=== PATIENT | female | born 1990 | race Two or more races ===

== ENCOUNTER 2024-06-09 05:06 | Emergency (ER) | payer SELFPAY ==
--- NOTE | 2024-06-09 | ECG_ITS ---
Test Reason : FALL Blood Pressure : / mmHG Vent. Rate : 093 BPM Atrial Rate : 093 BPM P-R Int : 120 ms QRS Dur : 084 ms QT Int : 388 ms P-R-T Axes : 041 030 041 degrees QTc Int : 482 ms Normal sinus rhythm Cannot rule out Anterior infarct , age undetermined Abnormal ECG No previous ECGs available Referred By: Generic ED Physician Electronically Signed By:HARVINDER GUTIERREZ MD
--- NOTE | ~2024-06-09 | CT_ITS ---
EXAMINATION: CT ABDOMEN AND PELVIS WITH CONTRAST CLINICAL INFORMATION: Flank pain, bilaterally. COMPARISON: No priors. TECHNIQUE: Multidetector volumetric images were obtained from the superior aspect of the liver through the pubic symphysis following administration 85 mL of Omnipaque 350 intravenous contrast without reported immediate complications. Sagittal and coronal reformatted images were obtained on the technologist's workstation. Oral contrast: No This CT examination was performed using dose optimization techniques as appropriate, variously including the following: *Automated exposure control *Adjustment of mA and/or kV according to patient size (this includes techniques or standardized protocols for targeted exams where dose is matched to indication/reason for exam; i.e. extremities or head) *Use of iterative reconstruction technique DLP: 621 mGy-cm FINDINGS: LUNG BASES: No acute airspace disease or gross pulmonary nodules in the included lung bases. LIVER, GALLBLADDER, AND BILIARY TREE: Liver measures 15 cm. Decreased enhancement pattern. There is a 3.4 cm heterogeneous low density in the right hepatic lobe near the 4A /4B segments.. Main portal veins, hepatic veins and intrahepatic portion of the IVC are patent. No intrahepatic biliary ductal dilatation. No pericholecystic fluid collection or gallbladder wall thickening. Common bile duct measures 3 mm. PANCREAS: No focal mass. No main pancreatic ductal dilatation. No peripancreatic fluid collections. SPLEEN: Measures 17 cm. No focal mass. ADRENAL GLANDS: No nodular lesions. KIDNEYS AND URETERS: Normal enhancement pattern of the renal cortex and medulla. No gross mass. No hydronephrosis. BLADDER: Fluid-filled. GASTROINTESTINAL TRACT: Collapsed appearance of the left hemicolon. No intestinal obstruction pattern. No pneumatosis intestinalis. Appendix is normal Hiatal hernia, small size. No ascites. No pneumoperitoneum. ABDOMINAL WALL: No gross hernia. LYMPH NODES: No lymphadenopathy. VASCULAR: No aneurysm or dissection, abdominal aorta. PELVIC VISCERA: Heterogeneous enhancing nodular lesions in the uterus, the largest measures 3.4 cm. There is a 3 cm fluid density in the left adnexa. OSSEOUS STRUCTURES: No acute fracture or listhesis in the axial skeleton. No lytic or blastic lesions. Prominent epidural fat at L5-S1 resulting in decreased diameter of the thecal sac. Fatty atrophy in the lower lumbar muscles likely related to denervation. CT/CT abdomen pelvis w IV con IMPRESSION: No hydronephrosis or gross renal lesion. Hepatic steatosis. 3.4 cm heterogeneous low density lesion, right hepatic lobe. Hiatal hernia, small size. Uterine fibroids. 3 cm cystic lesion, left adnexa. Fleischner guidelines were followed. Electronically signed by: Noam Hendrix MD 06/09/2024 09:05 AM JANE
--- NOTE | ~2024-06-09 | CT_ITS ---
EXAMINATION: CT HEAD WITHOUT CONTRAST CLINICAL INFORMATION: fall, head injury, pain COMPARISON: None available. TECHNIQUE: Contiguous axial imaging was performed from the skull base to vertex without intravenous administration of contrast. This CT examination was performed using dose optimization techniques as appropriate, variously including the following: *Automated exposure control *Adjustment of mA and/or kV according to patient size (this includes techniques or standardized protocols for targeted exams where dose is matched to indication/reason for exam; i.e. extremities or head) *Use of iterative reconstruction technique DLP: 667 mGy-cm FINDINGS: No acute intracranial hemorrhage, mass effect, midline shift, hydrocephalus or herniation. Seals-white matter differentiation is normal. Posterior cranial fossa contents demonstrated slight increased density along the right transverse venous sinus and into the superior sagittal venous sinus. There is an 8 mm fluid density in the pineal gland. Bony calvarium is intact. Skull base is intact. No air-fluid levels in the included paranasal sinuses. Tympanic cavities and mastoid air cells are aerated. There is a 12 mm round fluid density beneath the skin in the right maxillofacial region. CT/CT head/brain wo IV con IMPRESSION: No acute fracture, bony calvarium. No acute intracranial hemorrhage. 8 mm pineal gland cyst. ] Electronically signed by: Noam Hendrix MD 06/09/2024 09:11 AM JANE
--- NOTE | ~2024-06-09 | CT_ITS ---
EXAMINATION: CT CERVICAL SPINE WITHOUT CONTRAST CLINICAL INFORMATION: Status post fall. Pain. COMPARISON: None available. TECHNIQUE: Contiguous axial images through the cervical spine using 3 mm collimation with bone and soft tissue algorithm. Sagittal and coronal reformatted images acquired. This CT examination was performed using dose optimization techniques as appropriate, variously including the following: *Automated exposure control *Adjustment of mA and/or kV according to patient size (this includes techniques or standardized protocols for targeted exams where dose is matched to indication/reason for exam; i.e. extremities or head) *Use of iterative reconstruction technique DLP: 429 mGy-cm FINDINGS: Craniocervical junction is intact. C1 is intact. C2 is intact. No acute cortical disruption within the vertebral bodies, transverse processes, facet joints, lamina nor the posterior spinous processes. No gross malalignment. No gross prevertebral compartment hematoma. CT/CT cervical spine wo IV con IMPRESSION: No acute fracture or trauma-related listhesis. If patient's symptoms persist consider MRI. Fleischner guidelines were followed. Electronically signed by: Noam Hendrix MD 06/09/2024 09:23 AM JANE JOVEL
[2024-06-09 05:35] VITALS: BP 158/108; PULSE 127; RESP 24; TEMP 36.9; O2SAT 99
[2024-06-09 05:53] VITALS: BP 153/105; PULSE 96; RESP 16; TEMP 37.3; O2SAT 100
[2024-06-09 06:05] LABS: MANUAL DIFF FLAG NO
--- NOTE | 2024-06-09 06:05 | MHC.EDTECH ---
This pct just assumed care of Patient @ 0600 ,vitals taken ,Pt was change into hospitals attire ,Patient was assisted to ambulate to bathroom ,void and back to bed ,blood drawn ,urine sample collected and rsv/covid swab all sent to lab ,Patient ekg taken and was read by Provider ,Patient was hooked up to store product demonstrator ,blood sugar check ,Patient A&O ,RN Hannah is aware Patient very diaferatic ,chills ,nauseous and is vomiting ,All safety measure in Place ,Call porter within Pt reach .
[2024-06-09 06:07] LABS: Basophils Absolute Auto 0.1 X10*3/uL (0.0-0.2); Basophils Percent Auto 0.7 % (0-2); Eosinophils Percent Auto 0.1 % (0-4); Hematocrit 43.5 % (37.0-47.0); Hemoglobin 14.7 g/dl (12.0-16.0); Imm Gran Abs Auto 0.04 X10*3/uL (0.00-0.03); Imm Gran Pct Auto 0.3 % (0.0-0.4); Lymphocytes Absolute Auto 1.2 X10*3/uL (1.2-4.9); Lymphocytes Percent Auto 10.2 % (20-40); Mean Corpuscular HGB Conc 33.8 g/dl (31.0-35.0); Mean Corpuscular Hemoglobin 29.1 pg (27.0-33.0); Mean Platelet Volume 9.3 fL (9.4-12.3); Monocytes Absolute Auto 0.9 X10*3/uL (0.1-1.2); Monocytes Percent Auto 7.5 % (2-11); Neutrophils Absolute Auto 9.6 x10*3/uL (2.0-8.3); Neutrophils Percent Auto 81.2 % (45-73); Platelet Count 346 X10*3/uL (160-400); Red Blood Count 5.06 X10*6/uL (4.20-5.50); Red Cell Distribution Width 13.6 % (11.0-16.0); White Blood Count 11.8 X10*3/uL (4.8-10.8)
[2024-06-09 06:12] LABS: Appearance Urine Cloudy; Color Urine Dark Yellow; Glucose Urine UA Negative (Negative); Leukocyte Esterase Urine Small (1+) (Negative); Nitrite Urine Negative (Negative); Specific Gravity - Urine >= 1.030 (1.005-1.025); UMIC TRIGGER UACC YES; Urine Blood Negative (Negative); Urine Ketones 40 mg/dL (Negative); Urine Protein 100 (2+) mg/dL (Neg-Trace)
[2024-06-09 06:13] LABS: UPreg QC Valid YES; Urine Pregnancy NEGATIVE (NEGATIVE)
[2024-06-09 06:21] LABS: Glucose, Whole Blood 98 mg/dL (60-115)
[2024-06-09 06:24] LABS: Bacteria Urine 4+ (None Seen); Hyaline Casts Urine 0-2 /LPF (0-2); Squamous Epithelial Cell Urine >20 /HPF (0-2); UACC Culture Trigger YES; WBC Urine 21-50 /HPF (0-5)
[2024-06-09 06:28] LABS: Anion Gap 16 (12-20); Blood Urea Nitrogen 6 mg/dL (9-16); Calcium 9.4 mg/dL (8.4-10.2); Carbon Dioxide 21 mmol/L (22-29); Chloride 104 mmol/L (96-108); Creatinine Clr Calc Pharmacy 132.2; Estimated Glomerular Filt Rate > 60; Glucose Random 103 mg/dL (60-115); Lipase 21 U/L (8-78); Potassium 2.7 mmol/L (3.3-5.1); Sodium 138 mmol/L (135-145)
[2024-06-09 06:45] LABS: Influenza A PCR NEGATIVE (Negative); Influenza B PCR NEGATIVE (Negative); Resp Syncy Virus RNA Qual PCR NEGATIVE (Negative); SARS COV2 PCR INHOUSE NEGATIVE (Negative)
--- NOTE | 2024-06-09 06:45 | ED_ITS ---
HPI - General Adult General Chief complaint: Head Injury Stated complaint: headache - UTI? Time Seen by Provider: 06/09/24 06:40 Source: patient Mode of arrival: ambulatory Limitations: no limitations History of Present Illness ED Provider: Marleni Wang PA-C HPI narrative: Patient is a 34 year old assigned female at with no reported medical history presenting to the emergency department today with a headache, abdominal pain, and nausea. Patient states that 3 days ago she fell backwards and hit her head. Patient states that since then she has had a head and nausea. Patient states that starting this morning she began vomiting, having cloudy urine, and abdominal pain. Patient denies any dizziness, lightheadedness, fever, chills, blurry vision, double vision, loss of vision, chest pain, difficulty breathing, shortness of breath, back pain, night sweats, pain with urination, increased urinary frequency, increased urinary urgency, blood in her urine or stool, syncope or a near syncopal episode, recent trauma or falls, bowel incontinence, bladder incontinence, or any other complaints at this time. Relieving factors: none Exacerbating factors: none Associated symptoms: nausea/vomiting Treatments prior to arrival: none Related Data Previous Rx's ?Medication ?Instructions ?Recorded cefuroxime axetil 250 mg tablet 250 mg PO BID 7 days #14 tabs 06/09/24 omeprazole 20 mg capsule,delayed 20 mg PO DAILY #7 caps 06/09/24 release ondansetron 4 mg disintegrating 4 mg PO Q8H 3 days #9 tabs 06/09/24 tablet Allergies Allergy/AdvReac Type Severity Reaction Status Date / Time No Known Allergies Allergy Verified 06/09/24 05:38 Review of Systems 2 Constitutional: Constitutional: Reports no additional constitutional complaints, Denies chills, Denies fever(s), Reports headache(s) and Denies night sweats Eyes: Eyes: Reports no additional eye complaints, Denies blurry vision, Denies change in vision, Denies diplopia, Denies eye discharge, Denies loss of vision and Denies eye pain ENT: Denies dizziness and Reports headache(s) Cardiovascular: Cardiovascular: Reports no additional cardiovascular complaints, Denies chest pain, Denies lightheadedness, Denies Loss of Consciousness and Denies dyspnea Respiratory: Respiratory: Reports no additional respiratory complaints and Denies dyspnea Gastrointestinal: Gastrointestinal: Reports no additional gastrointestinal complaints, Reports abdominal pain, Denies melena, Denies hematochezia, Denies change in bowel habits, Denies change in stool character, Reports nausea and Reports vomiting Genitourinary: Genitourinary: Denies hematuria, Denies urinary frequency, Denies dysuria, Denies urinary incontinence, Denies urinary hesitancy and Denies urinary urgency Musculoskeletal: Musculoskeletal: Reports no additional musculoskeletal complaints, Denies numbness and Denies tingling Neurologic: Denies dizziness, Reports headache(s), Denies loss of vision, Denies numbness and Denies tingling Psychiatric: Psychiatric: Reports no additional psychiatric complaints Endocrine: Endocrine: Reports no additional endocrine complaints Hematologic/Lymphatic: Hematologic/Lymphatic: Reports no additional hematologic/lymphatic complaints Allergic/Immunologic: Allergic/Immunologic: Reports no additional allergic/immunologic complaints PMFSH Past Medical History Attestation statement: The following information was validated with the patient. Source: old records reviewed and nursing notes reviewed Physical Exam ED Vital Signs: Vital Signs - 24 hr 06/09/24 05:35 06/09/24 05:53 06/09/24 07:23 Temperature 98.4 F 99.1 F 99.9 F Pulse Rate 127 H 96 78 Respiratory Rate 24 H 16 18 Blood Pressure 158/108 H 153/105 H 150/93 H Pulse Oximetry 99 100 99 Oxygen Delivery Method Room Air Room Air Room Air 06/09/24 09:47 06/09/24 10:18 Temperature 97.9 F 97.9 F Pulse Rate 83 83 Respiratory Rate 15 15 Blood Pressure 109/87 109/87 Pulse Oximetry 98 98 Oxygen Delivery Method Room Air Room Air BMI result Body Mass Index 30.0 Const General: cooperative, no acute distress, alert and awake Nutritional Appearance: well nourished Orientation/consciousness: patient oriented x3 Limitations: no limitations HENMT Head: Yes normal to inspection and Yes atraumatic Ears: hearing grossly normal bilaterally and external ears normal General nose exam: Normal external nose present, no nasal discharge noted and no epistaxis Face and sinus: Yes normal facial exam, No abrasion and No laceration Mouth: Normal oral and palatal mucosa present, no drooling and no muffled voice Eyes General: appearance normal, both eyes and all related structures Periorbital: periorbital findings normal Eyelids: Yes eyelids normal Conjunctivae: conjunctivae normal Pupils: Equal, round and reactive pupils present EOM: EOMs intact bilaterally Neck Neck: Yes normal visual inspection, Yes full ROM and Yes no lymphadenopathy Chest Chest palpation & inspection: normal inspection of the chest Resp Effort & Inspection: normal respiratory effort and able to speak in complete sentences GI Inspection: Yes normal to inspection Palpation (GI): Soft to palpation, not firm, nontender and no guarding Neuro General: patient oriented x3 and moves all extremities Cranial nerves: Yes Equal, round and reactive pupils present Cognition (Neuro): normal cognition Extrem General: Yes normal to inspection, Yes full ROM and Yes capillary refill normal Psych Appearance: grossly normal Mental Status: mental status grossly normal Affect: normal affect Attitude: cooperative Thought process: Normal thought process present Thought content: Normal thought content present Insight: Good insight present (Psych) Medications Administered Discontinued Medications Generic Name Dose Route Start Last Admin Trade Name Freq PRN Reason Stop Dose Admin Ceftriaxone Sodium 1 gm 06/09/24 06:46 06/09/24 06:56 Ceftriaxone Sodium 1 Gm Vial IVPUSH 06/09/24 06:47 1 gm ONCE ONE Administration Potassium Chloride 10 meq in 100 mls @ 100 mls/hr 06/09/24 07:00 06/09/24 09:51 Potassium Chloride/H20 IV 06/09/24 10:59 0 mls/hr Q1H MARIELLE Infusion Iohexol 100 ml 06/09/24 08:35 06/09/24 08:35 Iohexol 350 Mg/Ml 100 Ml Infus..Btl IV 06/09/24 08:36 85 ml ONCE ONE Administration Morphine Sulfate 4 mg 06/09/24 06:55 06/09/24 07:04 Morphine Sulfate 4 Mg/Ml Cartridge IVPUSH 06/09/24 06:56 4 mg ONCE ONE Administration Protocol Ondansetron HCl 4 mg 06/09/24 06:46 06/09/24 06:56 Ondansetron Hcl 4 Mg/2 Ml Vial IVPUSH 06/09/24 06:47 4 mg ONCE ONE Administration Pantoprazole Sodium 40 mg 06/09/24 06:55 06/09/24 07:07 Pantoprazole Sodium 40 Mg/10 Ml Vial IVPUSH 06/09/24 06:56 40 mg ONCE ONE Administration Potassium Chloride 20 meq 06/09/24 09:43 06/09/24 09:51 Potassium Chloride Er 20 Meq Tab.Er.Prt PO 06/09/24 09:44 20 meq ONCE ONE Administration Medical Decision Making Medical Decision Making [facility] Narrative: Patient is a 34 year old assigned female at with no reported medical history presenting to the emergency department today with a headache, abdominal pain, and nausea. Patient's physical exam was as noted in the physical exam portion of this note. Patient's blood work showed a mildly elevated WBC count of 11.8 and hypokalemia of 3.2 - these are both consistent with nausea / vomiting. Patient's urine showed an acute UTI. Patient's EKG was unremarkable. Patient's head, c-spine, and abdomen/pelvis CTs showed no acute process. I explained my physical exam findings as well as all test results to the patient. I answered all questions asked by the patient. Patient received IV morphine, zofran, and protonix which, upon re-evaluation, she stated it helped her symptoms significantly. Patient was given potassium and her level improved upon repeat. I stressed the importance of the patient taking her medication as directed (either prescribed or as the over the counter packaging recommends). I stressed the importance of the patient following up with her primary care provider. I stressed the importance of the patient returning to the emergency department immediately if her symptoms were to worsen or if she were to develop any dizziness, shortness of breath, difficulty breathing, chest pain, blurry vision, loss of vision, nausea, vomiting, abdominal pain, fever, chills, back pain, or any other complaints. Patient verbalized agreement and understanding with this treatment plan and discharge. Differential Diagnosis Differential Diagnoses: The differential diagnosis associated with the presentation includes Concussion Abdominal pain Hypokalemia UTI Admission/Observation Consideration of admission/observation: Escalation of care including admission/observation considered Patient would have been admitted to the hospital had her work up had any findings where hospital admission was appropriate and her clinical presentation warranted hospital admission. Lab Data [facility] Lab Attestation statement: I reviewed the patient's lab results. My interpretation of these results are in the [facility] Rationale portion of this note. 06/09/24 06:00 06/09/24 09:58 Labs: Lab Results 06/09/24 06/09/24 06/09/24 Range/Units 05:51 05:57 06:00 WBC 11.8 H (4.8-10.8) X10*3/uL RBC 5.06 (4.20-5.50) X10*6/uL Hgb 14.7 (12.0-16.0) g/dl Hct 43.5 (37.0-47.0) % MCV 86.0 (80.0-98.0) fL MCH 29.1 (27.0-33.0) pg MCHC 33.8 (31.0-35.0) g/dl RDW 13.6 (11.0-16.0) % Plt Count 346 (160-400) X10*3/uL MPV 9.3 L (9.4-12.3) fL Immature Gran % (Auto) 0.3 (0.0-0.4) % Neut % (Auto) 81.2 H (45-73) % Lymph % (Auto) 10.2 L (20-40) % [place] % (Auto) 7.5 (2-11) % Eos % (Auto) 0.1 (0-4) % Baso % (Auto) 0.7 (0-2) % Lymph # (Auto) 1.2 (1.2-4.9) X10*3/uL [place] # (Auto) 0.9 (0.1-1.2) X10*3/uL Eos # (Auto) 0.0 (0.0-0.4) X10*3/uL Baso # (Auto) 0.1 (0.0-0.2) X10*3/uL Abs Immat Gran (auto) 0.04 H (0.00-0.03) X10*3/uL Absolute Neuts (auto) 9.6 H (2.0-8.3) x10*3/uL Absolute Nucleated RBC 0.000 (0.0-0.012) X10*3/uL Nucleated RBC % (auto) 0.0 (0.0-0.2) /100WBC Sodium 138 (135-145) mmol/L Potassium 2.7 L* (3.3-5.1) mmol/L Chloride 104 (96-108) mmol/L Carbon Dioxide 21 L (22-29) mmol/L Anion Gap 16 (12-20) BUN 6 L (9-16) mg/dL Creatinine 0.65 (0.5-1.4) mg/dL Estim Creat Clear Calc 132.2 Estimated GFR > 60 POC Glucose 98 (60-115) mg/dL Random Glucose 103 (60-115) mg/dL Calcium 9.4 (8.4-10.2) mg/dL Total Bilirubin 1.4 H (0.0-1.0) mg/dL Direct Bilirubin 0.5 (0.0-0.5) mg/dL AST 105 H (5-31) U/L ALT 84 H (0-31) U/L Alkaline Phosphatase 78 (39-117) U/L Total Protein 7.3 (6.5-8.0) g/dL Albumin 4.1 (3.5-5.0) g/dL Lipase 21 (8-78) U/L Urine Color Dark Yellow Urine Appearance Cloudy Urine pH 6.0 (5.0-9.0) Ur Specific [place] >= 1.030 H (1.005-1.025) Urine Protein 100 (2+) H (Neg-Trace) mg/dL Urine Glucose (UA) Negative (Negative) mg/dL Urine Ketones 40 (Negative) mg/dL Urine Blood Negative (Negative) Urine Nitrite Negative (Negative) Ur Leukocyte Esterase Small (1+) H (Negative) Urine RBC 3-5 H (0-2) /HPF Urine WBC 21-50 H (0-5) /HPF Ur Squamous Epith Cells >20 (0-2) /HPF Urine Bacteria 4+ (None Seen) Hyaline Casts 0-2 (0-2) /LPF Urine Test NEGATIVE (NEGATIVE) Influenza Type A (PCR) NEGATIVE (Negative) Influenza Type B (PCR) NEGATIVE (Negative) RSV RNA Qual (PCR) NEGATIVE (Negative) SARS-CoV-2 RNA (RT-PCR) NEGATIVE (Negative) 06/09/24 Range/Units 09:58 WBC (4.8-10.8) X10*3/uL RBC (4.20-5.50) X10*6/uL Hgb (12.0-16.0) g/dl Hct (37.0-47.0) % MCV (80.0-98.0) fL MCH (27.0-33.0) pg MCHC (31.0-35.0) g/dl RDW (11.0-16.0) % Plt Count (160-400) X10*3/uL MPV (9.4-12.3) fL Immature Gran % (Auto) (0.0-0.4) % Neut % (Auto) (45-73) % Lymph % (Auto) (20-40) % [place] % (Auto) (2-11) % Eos % (Auto) (0-4) % Baso % (Auto) (0-2) % Lymph # (Auto) (1.2-4.9) X10*3/uL [place] # (Auto) (0.1-1.2) X10*3/uL Eos # (Auto) (0.0-0.4) X10*3/uL Baso # (Auto) (0.0-0.2) X10*3/uL Abs Immat Gran (auto) (0.00-0.03) X10*3/uL Absolute Neuts (auto) (2.0-8.3) x10*3/uL Absolute Nucleated RBC (0.0-0.012) X10*3/uL Nucleated RBC % (auto) (0.0-0.2) /100WBC Sodium (135-145) mmol/L Potassium 3.2 L (3.3-5.1) mmol/L Chloride (96-108) mmol/L Carbon Dioxide (22-29) mmol/L Anion Gap (12-20) BUN (9-16) mg/dL Creatinine (0.5-1.4) mg/dL Estim Creat Clear Calc Estimated GFR POC Glucose (60-115) mg/dL Random Glucose (60-115) mg/dL Calcium (8.4-10.2) mg/dL Total Bilirubin (0.0-1.0) mg/dL Direct Bilirubin (0.0-0.5) mg/dL AST (5-31) U/L ALT (0-31) U/L Alkaline Phosphatase (39-117) U/L Total Protein (6.5-8.0) g/dL Albumin (3.5-5.0) g/dL Lipase (8-78) U/L Urine Color Urine Appearance Urine pH (5.0-9.0) Ur Specific [place] (1.005-1.025) Urine Protein (Neg-Trace) mg/dL Urine Glucose (UA) (Negative) mg/dL Urine Ketones (Negative) mg/dL Urine Blood (Negative) Urine Nitrite (Negative) Ur Leukocyte Esterase (Negative) Urine RBC (0-2) /HPF Urine WBC (0-5) /HPF Ur Squamous Epith Cells (0-2) /HPF Urine Bacteria (None Seen) Hyaline Casts (0-2) /LPF Urine Test (NEGATIVE) Influenza Type A (PCR) (Negative) Influenza Type B (PCR) (Negative) RSV RNA Qual (PCR) (Negative) SARS-CoV-2 RNA (RT-PCR) (Negative) Independent Interpretation I performed an independent interpretation of an: CT Scan Interpretation: My interpretation is in agreement with the radiologist's impression of these imaging studies. L EXAMINATION: CT HEAD WITHOUT CONTRAST CLINICAL INFORMATION: fall, head injury, pain COMPARISON: None available. TECHNIQUE: Contiguous axial imaging was performed from the skull base to vertex without intravenous administration of contrast. This CT examination was performed using dose optimization techniques as appropriate, variously including the following: *Automated exposure control *Adjustment of mA and/or kV according to patient size (this includes techniques or standardized protocols for targeted exams where dose is matched to indication/reason for exam; i.e. extremities or head) *Use of iterative reconstruction technique DLP: 667 mGy-cm FINDINGS: No acute intracranial hemorrhage, mass effect, midline shift, hydrocephalus or herniation. Seals-white matter differentiation is normal. Posterior cranial fossa contents demonstrated slight increased density along the right transverse venous sinus and into the superior sagittal venous sinus. There is an 8 mm fluid density in the pineal gland. Bony calvarium is intact. Skull base is intact. No air-fluid levels in the included paranasal sinuses. Tympanic cavities and mastoid air cells are aerated. There is a 12 mm round fluid density beneath the skin in the right maxillofacial region. CT/CT head/brain wo IV con IMPRESSION: No acute fracture, bony calvarium. No acute intracranial hemorrhage. 8 mm pineal gland cyst. Electronically signed by: Noam Hendrix MD 06/09/2024 09:11 [facility] Dictated By: Noam Benton MD Signed By: Electronically signed by Noam Lisa MD 06/09/24 0911 EXAMINATION: CT ABDOMEN AND PELVIS WITH CONTRAST CLINICAL INFORMATION: Flank pain, bilaterally. COMPARISON: No priors. TECHNIQUE: Multidetector volumetric images were obtained from the superior aspect of the liver through the pubic symphysis following administration 85 mL of Omnipaque 350 intravenous contrast without reported immediate complications. Sagittal and coronal reformatted images were obtained on the technologist's workstation. Oral contrast: No This CT examination was performed using dose optimization techniques as appropriate, variously including the following: *Automated exposure control *Adjustment of mA and/or kV according to patient size (this includes techniques or standardized protocols for targeted exams where dose is matched to indication/reason for exam; i.e. extremities or head) *Use of iterative reconstruction technique DLP: 621 mGy-cm FINDINGS: LUNG BASES: No acute airspace disease or gross pulmonary nodules in the included lung bases. LIVER, GALLBLADDER, AND BILIARY TREE: Liver measures 15 cm. Decreased pattern. There is a 3.4 cm heterogeneous low density in the right hepatic lobe near the 4A /4B segments.. Main portal veins, hepatic veins and intrahepatic portion of the IVC are patent. No intrahepatic biliary ductal dilatation. No pericholecystic fluid collection or gallbladder wall thickening. Common bile duct measures 3 mm. PANCREAS: No focal mass. No main pancreatic ductal dilatation. No peripancreatic fluid collections. SPLEEN: Measures 17 cm. No focal mass. ADRENAL GLANDS: No nodular lesions. KIDNEYS AND URETERS: Normal enhancement pattern of the renal cortex and medulla. No gross mass. No hydronephrosis. BLADDER: Fluid-filled. GASTROINTESTINAL TRACT: Collapsed appearance of the left hemicolon. No intestinal obstruction pattern. No pneumatosis intestinalis. Appendix is normal. Hiatal hernia, small size. No ascites. No pneumoperitoneum. ABDOMINAL WALL: No gross hernia. LYMPH NODES: No lymphadenopathy. VASCULAR: No aneurysm or dissection, abdominal aorta. PELVIC VISCERA: Heterogeneous enhancing nodular lesions in the uterus, the largest measures 3.4 cm. There is a 3 cm fluid density in the left adnexa. OSSEOUS STRUCTURES: No acute fracture or listhesis in the axial skeleton. No lytic or blastic lesions. Prominent epidural fat at L5-S1 resulting in decreased diameter of the thecal sac. Fatty atrophy in the lower lumbar muscles likely related to denervation. CT/CT abdomen pelvis w IV con IMPRESSION: No hydronephrosis or gross renal lesion. Hepatic steatosis. 3.4 cm heterogeneous low density lesion, right hepatic lobe. Hiatal hernia, small size. Uterine fibroids. 3 cm cystic lesion, left adnexa. Fleischner guidelines were followed. Electronically signed by: Noam Hendrix MD 06/09/2024 09:05 AM EST Dictated By: Noam Benton MD Signed By: Electronically signed by Noam Lisa MD 06/09/24904 EXAMINATION: CT CERVICAL SPINE WITHOUT CONTRAST CLINICAL INFORMATION: Status post fall. Pain. COMPARISON: None available. TECHNIQUE: Contiguous axial images through the cervical spine using 3 mm collimation with bone and soft tissue algorithm. Sagittal and coronal reformatted images acquired. This CT examination was performed using dose optimization techniques as appropriate, variously including the following: *Automated exposure control *Adjustment of mA and/or kV according to patient size (this includes techniques or standardized protocols for targeted exams where dose is matched to indication/reason for exam; i.e. extremities or head) *Use of iterative reconstruction technique DLP: 429 mGy-cm FINDINGS: Craniocervical junction is intact. C1 is intact. C2 is intact. No acute cortical disruption within the vertebral bodies, transverse processes, facet joints, lamina nor the posterior spinous processes. No gross malalignment. No gross prevertebral compartment hematoma. CT/CT cervical spine wo IV con IMPRESSION: No acute fracture or trauma-related listhesis. If patient's symptoms persist consider MRI. Fleischner guidelines were followed. Electronically signed by: Noam Hendrix MD 06/09/2024 09:23 AM EST Dictated By: Noam Benton MD Signed By: Electronically signed by Noam Lisa MD 06/09/24 0923 Vent. Rate: 093 BPM Atrial Rate: 093 BPM P-R Int: 120 ms QRS Dur: 084 ms QT Int: 388 ms P-R-T Axes: 041 030 041 degrees QTc Int: 482 ms Normal sinus rhythm Cannot rule out Anterior infarct , age undetermined Abnormal ECG No previous ECGs available Electronically Signed By:JUAN GUTIERREZ MD Dictated By: Juan Gutierrez MD Signed By: Electronically signed by Juan Gutierrez MD 06/09/24 0825 Radiology Impression Discussion of test interpretation with radiology: I have reviewed the radiologist's reading. Prescription Management I considered prescription management with: Antibiotic (patient prescribed antibiotic for UTI) Critical Care Time Critical Care Time Critical Care Time: Yes Total Critical Care Time: 38 Attestation: I spent 38 minutes of Critical Care Time with this patient. This does not include time spent on separately reported billable procedures. Discharge Plan Discharge Clinical Impression: UTI (urinary tract infection), Abdominal pain, Nausea & vomiting, Concussion Patient Disposition: Home, Self-Care Instructions: Urinary Tract Infection in Women (DC), Concussion (ED), Acute Nausea and Vomiting (ED), Abdominal Pain (ED) Additional Instructions: Take your antibiotic as prescribed. Follow up with your primary care provider. Return to the emergency department immediately if your symptoms worsen or if you develop any dizziness, shortness of breath, difficulty breathing, chest pain, blurry vision, loss of vision, nausea, vomiting, abdominal pain, fever, chills, back pain, or any other complaints. Prescriptions: New cefuroxime axetil 250 mg tablet 250 mg PO BID 7 Days Qty: 14 0RF ondansetron 4 mg tablet,disintegrating 4 mg PO Q8H 3 Days Qty: 9 0RF omeprazole 20 mg capsule,delayed release(DR/EC) 20 mg PO DAILY Qty: 7 0RF [place] [facility] [place] (Call to establish and follow up with a primary care provider. If you already have a primary care provider, please follow up with them.) [facility] [place] [facility] [place]Provider Group] (Call to establish and follow up with a primary care provider. If you already have a primary care provider, please follow up with them.) [facility] [place] [place] Group] (Call to establish and follow up with a primary care provider. If you already have a primary care provider, please follow up with them.) Stand Alone Forms: Work/School Release Interventions: ED Discharge Assessment Last Done: 06/09/24 10:18 Discharge Date/Time: 06/09/24 10:25 Print Language: Danish
[2024-06-09] MEDS: ondansetron HCL 4 MG/2 ML VIAL IVPUSH (06:56)
[2024-06-09] MEDS: cefTRIAXone sodium 1 GM VIAL IVPUSH (06:56)
[2024-06-09] MEDS: Potassium Chloride/H20 10 MEQ/100 ML PIGGYBACK 100 MEQ IV ×3 (07:01→09:11)
[2024-06-09] MEDS: Morphine Sulfate 4 MG/ML CARTRIDGE IVPUSH (07:04)
[2024-06-09] MEDS: Pantoprazole Sodium 40 MG/10 ML VIAL IVPUSH (07:07)
[2024-06-09 07:21] LABS: Alanine Aminotransferase 84 U/L (0-31); Albumin Level 4.1 g/dL (3.5-5.0); Alkaline Phosphatase 78 U/L (39-117); Aspartate Amino Transferase 105 U/L (5-31); Bilirubin Direct 0.5 mg/dL (0.0-0.5); Bilirubin Total 1.4 mg/dL (0.0-1.0); Total Protein 7.3 g/dL (6.5-8.0)
[2024-06-09 07:23] VITALS: BP 150/93; PULSE 78; RESP 18; TEMP 37.7; O2SAT 99
[2024-06-09] MEDS: iohexoL 350 MG/ML 100 ML INFUS..BTL IV (08:35)
[2024-06-09 09:47] VITALS: BP 109/87; PULSE 83; RESP 15; TEMP 36.6; O2SAT 98
[2024-06-09] MEDS: Potassium Chloride ER 20 MEQ TAB.ER.PRT PO (09:51)
[2024-06-09 10:10] LABS: Potassium 3.2 mmol/L (3.3-5.1)
[2024-06-09 10:18] VITALS: BP 109/87; PULSE 83; RESP 15; TEMP 36.6; O2SAT 98
== END 2024-06-09 10:25 | disposition home or self-care (01) ==
PROVIDERS: Physician Assistant Medical; Emergency Provider Emergency Medicine
DX: N39.0 Urinary tract infection, site not specified (principal); S06.0X0A Concussion without loss of consciousness, initial encounter; W19.XXXA Unspecified fall, initial encounter; R11.2 Nausea with vomiting, unspecified; R10.9 Unspecified abdominal pain; Y93.9 Activity, unspecified; Y92.9 Unspecified place or not applicable; Y99.9 Unspecified external cause status; Z03.818 Encounter for observation for suspected exposure to other biological agents ruled out
CPT/HCPCS: 0241U; 36415; 70450; 72125; 74177; 80048; 80076; 81001; 81025; 82947; 83690; 84132; 85025; 87086; 93005; 96365; 96366; 96375; 99284; J0696; J2270; J2405; J2470; J3480; Q9967

== ENCOUNTER → 2024-06-09 05:50 | Outpatient (BNV) | payer SELFPAY | PROVIDERS: Emergency Provider Emergency Medicine; Visit Provider Internal Medicine Cardiovascular Disease | DX: R94.31 Abnormal electrocardiogram [ECG] [EKG] (principal) | CPT/HCPCS: 93010 ==

== ENCOUNTER → 2024-06-09 06:46 | Outpatient (BNV) | payer SELFPAY | PROVIDERS: Emergency Provider Emergency Medicine; Visit Provider Radiology Diagnostic Radiology | DX: R10.9 Unspecified abdominal pain (principal); S09.90XA Unspecified injury of head, initial encounter | CPT/HCPCS: 70450; 72125; 74177 ==

== ENCOUNTER 2025-02-24 15:16 | Emergency (ER) | payer MEDICAID, SELFPAY ==
[2025-02-24 15:19] VITALS: BP 129/77; PULSE 100; RESP 18; TEMP 36.6; O2SAT 100; BMI 31.4
--- NOTE | 2025-02-24 15:21 | ED.SKABFB ---
HPI - Skin/Abscess/Foreign Bdy General Chief complaint: General Medical Stated complaint: cyst Time Seen by Provider: 02/24/25 18:40 Source: patient Mode of arrival: ambulatory Limitations: no limitations History of Present Illness ED Provider: DR. Kc HPI narrative: 34-year-old female came for evaluation of left buttock cheek abscess, patient is prone to abscesses in the past. Started to get painful 2 days ago and progressively getting worse. No fever, no chills. Related Data Previous Rx's ?Medication ?Instructions ?Recorded cefuroxime axetil 250 mg tablet 250 mg PO BID 7 days #14 tabs 06/09/24 omeprazole 20 mg capsule,delayed 20 mg PO DAILY #7 caps 06/09/24 release ondansetron 4 mg disintegrating 4 mg PO Q8H 3 days #9 tabs 06/09/24 tablet Allergies Allergy/AdvReac Type Severity Reaction Status Date / Time No Known Allergies Allergy Verified 02/24/25 15:22 Review of Systems Review of Systems: All other systems are reviewed and are negative Constitutional: Reports as per HPI and Reports no additional constitutional complaints Eyes: Reports as per HPI and Reports no additional eye complaints Reports system reviewed and no additional complaints, except as documented Cardiovascular: Reports as per HPI and Reports no additional cardiovascular complaints Respiratory: Reports as per HPI and Reports no additional respiratory complaints Gastrointestinal: Reports as per HPI and Reports no additional gastrointestinal complaints Genitourinary: Reports no additional female genitourinary complaints Musculoskeletal: Reports no additional musculoskeletal complaints Skin/Breast: Reports system reviewed and no additional complaints, except as docu Psychiatric: Reports no additional psychiatric complaints Endocrine: Reports no additional endocrine complaints Hematologic/Lymphatic: Reports no additional hematologic/lymphatic complaints Allergic/Immunologic: Reports no additional allergic/immunologic complaints Reports system reviewed and no additional complaints, except as documented and Reports Abnormal speech present FOR[facility]LY [facility], [facility] Social History Social History Smoked in Last 30 Days: Yes Substance Use Type: Marijuana Advance Directives: No Advance Directives Information Provided: No Do you have a plan to hurt others: No Plan Physical Exam Vital Signs: Vital Signs: Last Vital Signs Temp 99.1 F 02/24/25 18:27 Pulse 88 02/24/25 18:27 Resp 14 02/24/25 18:27 BP 114/62 02/24/25 18:27 Pulse Ox 99 02/24/25 18:27 BMI result Body Mass Index 31.4 Vital signs have been reviewed and appear to be correct. Blood pressure elevated. Heart rate normal. Respiratory rate normal. Temperature normal. Oxygen saturation normal. Appearance: Alert. Oriented X3. No acute distress. Head: Normal external exam. Normocephalic. Atraumatic. No Hernandez signs noted. No raccoon eyes noted Eyes: PERRLA. EOMI. Conjunctiva and sclera normal. Eyelids normal. ENT: TM's Normal. Pharynx normal. Uvula midline. Moist mucous membranes. No trismus noted. No drooling noted. No muffled voice noted. Neck: Normal inspection. Neck supple. FROM. No adenopathy. Thyroid Normal. No meningeal signs. No neck mass noted. CVS: Normal heart rate and rhythm. Heart sound normal. No murmurs noted. Pulses normal throughout. Respiratory: No respiratory distress. Painless inspiration. Breath sounds normal. No wheezes/rales/rhonchi noted. Chest nontender. No accessory muscle usage noted or decreased air movement noted. Abdomen: Soft and nontender. Bowel sounds normal in all 4 quadrants. No distention noted. No organomegaly noted. No visible injury noted. Rectal exam: 2 x 2 cm area of redness, severely tender, fluctuation in the middle of right buttock cheek, not involving the sphincter. No cellulitic change surrounding the abscess. Back: No CVA tenderness. Full range of motion noted. Skin: Skin warm and dry. Normal skin color. Normal skin turgor. No rashes/lesions/lacerations noted. Extremities: No lower extremity edema. Extremities exhibit normal range of motion. Extremities nontender. Neuro: Oriented X 3. Cranial nerve exam: II-XII are grossly intact No motor deficit. No sensory deficit. Reflexes normal. Course Course Course Narrative: This is an RME: Additional HPI, ROS, PE not included below will be deferred to primary provider. RME assessment and note performed by: Emilee Lang PA-C This is a [id number]-female who prsents to the ER with a complaint of buttocks abscess x 2 days. She has a hx of similar symptoms. unable to visualize in triage d/t limited privacy in triage. Plan: Exam, +/- I&D Reevaluation(s) Reevaluation #1: Left buttock abscess, s/p I and D. Time: 19:15 Medical Decision Making Differential Diagnosis Differential Diagnoses: The differential diagnosis associated with the presentation includes (Buttock abscess, cellulitis) Admission/Observation Consideration of admission/observation: Escalation of care including admission/observation considered Procedures Abscess I/D Site: marino-rectal (Right buttock area) Side (if applicable): left Local Anesthetic: lidocaine 1% Amount of anesthesia used (mL): 5 Technique: incised with blade Amount of fluid expressed (mL): 20 Irrigation: No Packing used?: none Complications: pain Discharge Plan Discharge Clinical Impression: Abscess of left buttock Patient Disposition: Home, Self-Care Instructions: Abscess (ED) Additional Instructions: Sitz bath Prescriptions: No Action cefuroxime axetil 250 mg tablet 250 mg PO BID 7 Days Qty: 14 0RF ondansetron 4 mg tablet,disintegrating 4 mg PO Q8H 3 Days Qty: 9 0RF omeprazole 20 mg capsule,delayed release(DR/EC) 20 mg PO DAILY Qty: 7 0RF Print Language: Serbian
[2025-02-24 18:27] VITALS: BP 114/62; PULSE 88; RESP 14; TEMP 37.3; O2SAT 99
--- NOTE | 2025-02-24 18:38 | PC.NURSE ---
Patient is a [id number]-female who prsents to the ER with a complaint of left innter buttocks abscess x 2 days. She has a hx of similar symptoms. Alert and oriented. Lungs clear bilat. Respirations even and non-labored. Abdomen soft, non-tender with positive pedal pulses with no edema. Abscess noted to inner fold of her left buttocks.
[2025-02-24 19:32] VITALS: BP 122/56; PULSE 107; RESP 18; TEMP 37.1; O2SAT 98
[2025-02-24] MEDS: Lidocaine HCl 1 % MPF 5 ML VIAL SUBCUT (19:32)
[2025-02-24 19:33] VITALS: BP 122/56; PULSE 107; RESP 18; TEMP 37.1; O2SAT 98
== END 2025-02-24 19:34 | disposition home or self-care (01) ==
PROVIDERS: Emergency Provider Emergency Medicine
DX: L02.31 Cutaneous abscess of buttock (principal)
CPT/HCPCS: 10060; 99284; J2003